=== PATIENT | female | born 1965 | race Caucasian/White ===

== ENCOUNTER 2020-01-23 15:57 | Outpatient (REF) | payer BC, SELFPAY ==
[2020-01-23 16:21] LABS: MANUAL DIFF FLAG NO
[2020-01-23 16:26] LABS: Basophils Absolute Auto 0.1 X10*3/uL (0.0-0.2); Basophils Percent Auto 0.6 % (0-2); Eosinophils Absolute Auto 0.1 X10*3/uL (0.0-0.4); Eosinophils Percent Auto 1.1 % (0-4); Hematocrit 46.2 % (37-47); Hemoglobin 14.3 g/dl (12.0-16.0); Imm Gran Abs Auto 0.03 X10*3/uL (0.00-0.03); Imm Gran Pct Auto 0.3 % (0.0-0.4); Lymphocytes Absolute Auto 2.5 X10*3/uL (1.2-4.9); Lymphocytes Percent Auto 26.3 % (20-40); Mean Corpuscular Hemoglobin 26.1 pg (27.0-33.0); Mean Corpuscular Volume 84.5 fL (80-98); Mean Platelet Volume 10.7 fL (9.4-12.3); Monocytes Absolute Auto 0.8 X10*3/uL (0.1-1.2); Neutrophils Absolute Auto 6.1 X10*3/uL (2.0-8.3); Neutrophils Percent Auto 63.7 % (45-73); Platelet Count 326 X10*3/uL (160-400); Red Blood Count 5.47 X10*6/uL (4.20-5.50); Red Cell Distribution Width 14.8 % (11.0-16.0); White Blood Count 9.6 X10*3/uL (4.8-10.8)
[2020-01-23 16:49] LABS: Alanine Aminotransferase 30 U/L (0-31); Albumin Level 4.3 g/dL (3.5-5.0); Alkaline Phosphatase 91 U/L (39-117); Anion Gap 12 (12-20); Aspartate Amino Transferase 18 U/L (5-31); Bilirubin Total 0.3 mg/dL (0.0-1.0); Blood Urea Nitrogen 13 mg/dL (9-16); Calcium 9.5 mg/dL (8.4-10.2); Carbon Dioxide 28 mmol/L (22-29); Chloride 104 mmol/L (96-108); Estimated Glomerular Filt Rate > 60; Glucose Random 101 mg/dL (60-115); Potassium 4.3 mmol/l (3.3-5.1); Sodium 140 mmol/L (135-145); Total Protein 7.5 g/dL (6.5-8.0)
[2020-01-23 17:16] LABS: Erythrocyte Sedimentation Rate 6 MM/HR (0-20)
== END 2020-01-23 15:58 | disposition home or self-care (01) ==
LOC: HO.LAB 15:57
PROVIDERS: PCP Internal Medicine; Visit Provider Student in an Organized Health Care Education/Training Program
DX: L40.50 Arthropathic psoriasis, unspecified (principal); L40.9 Psoriasis, unspecified
CPT/HCPCS: 36415; 80053; 85025; 85652; 86140

== ENCOUNTER 2020-11-06 13:24 | Outpatient (REF) | payer OTHER, SELFPAY ==
[2020-11-06 14:49] LABS: MANUAL DIFF FLAG NO
[2020-11-06 14:51] LABS: Basophils Absolute Auto 0.1 X10*3/uL (0.0-0.2); Basophils Percent Auto 0.7 % (0-2); Eosinophils Absolute Auto 0.1 X10*3/uL (0.0-0.4); Eosinophils Percent Auto 1.3 % (0-4); Hematocrit 43.7 % (37-47); Hemoglobin 13.7 g/dl (12.0-16.0); Imm Gran Abs Auto 0.02 X10*3/uL (0.00-0.03); Imm Gran Pct Auto 0.2 % (0.0-0.4); Lymphocytes Absolute Auto 2.2 X10*3/uL (1.2-4.9); Lymphocytes Percent Auto 25.1 % (20-40); Mean Corpuscular HGB Conc 31.4 g/dl (31.0-35.0); Mean Corpuscular Volume 83.1 fL (80-98); Mean Platelet Volume 10.8 fL (9.4-12.3); Monocytes Absolute Auto 0.8 X10*3/uL (0.1-1.2); Monocytes Percent Auto 8.9 % (2-11); Neutrophils Absolute Auto 5.6 X10*3/uL (2.0-8.3); Neutrophils Percent Auto 63.8 % (45-73); Platelet Count 324 X10*3/uL (160-400); Red Blood Count 5.26 X10*6/uL (4.20-5.50); White Blood Count 8.8 X10*3/uL (4.8-10.8)
[2020-11-06 15:34] LABS: Erythrocyte Sedimentation Rate 8 MM/HR (0-20)
[2020-11-06 15:55] LABS: Alanine Aminotransferase 23 U/L (0-31); Albumin Level 4.2 g/dL (3.5-5.0); Alkaline Phosphatase 84 U/L (39-117); Anion Gap 13 (12-20); Aspartate Amino Transferase 14 U/L (5-31); Bilirubin Total 0.4 mg/dL (0.0-1.0); Blood Urea Nitrogen 16 mg/dL (9-16); C Reactive Protein 1.01 mg/dL (< or = 0.50); Calcium 9.6 mg/dL (8.4-10.2); Carbon Dioxide 26 mmol/L (22-29); Chloride 106 mmol/L (96-108); Estimated Glomerular Filt Rate 49; Glucose Random 82 mg/dL (60-115); Potassium 4.6 mmol/L (3.3-5.1); Sodium 140 mmol/L (135-145); Total Protein 7.2 g/dL (6.5-8.0)
== END 2020-11-06 13:25 | disposition home or self-care (01) ==
LOC: HO.LAB 13:24
PROVIDERS: PCP Internal Medicine; Visit Provider Nurse Practitioner Family
DX: L40.50 Arthropathic psoriasis, unspecified (principal); F17.210 Nicotine dependence, cigarettes, uncomplicated; Z79.899 Other long term (current) drug therapy
CPT/HCPCS: 36415; 80053; 85025; 85652; 86140

== ENCOUNTER 2020-12-26 12:48 | Outpatient (REF) | payer OTHER, SELFPAY ==
[2020-12-27 09:34] LABS: HBS Num1 108.43 mIU/mL (0-7.99); HBc Num1 9.37 S/CO (0.00-0.79); HBsAGNum1 0.15 S/CO (0.00-0.99); ~Hepatitis B Surface Antibody REACTIVE (Nonreactive); ~Hepatitis C Antibody Nonreactive (Nonreactive)
[2020-12-27 09:35] LABS: Hepatitis B Surface Antigen Negative (Negative)
[2020-12-27 11:49] LABS: HBc Num2 8.94 S/CO
[2020-12-27 11:50] LABS: HBc Num3 9.48 S/CO; Hepatitis B Core Antibody Reactive (Nonreactive)
[2020-12-28 06:50] LABS: Hepatitis A Antibody IgM 0.13 Index (0-0.79); ~Hepatitis A Antibody IgM Nonreactive (Nonreactive)
[2020-12-28 18:22] LABS: TS Negative Control Passed; TS Panel A 0; TS Panel B 0; TS Positive Control Passed; TSpotTB Negative (Negative)
== END 2020-12-26 12:49 | disposition home or self-care (01) ==
LOC: HO.LAB 12:48
PROVIDERS: PCP Internal Medicine; Visit Provider Nurse Practitioner Family
DX: L40.50 Arthropathic psoriasis, unspecified (principal)
CPT/HCPCS: 36415; 86481; 86704; 86706; 86709; 86803; 87340

== ENCOUNTER 2021-01-07 14:50 | Outpatient (REF) | payer OTHER, SELFPAY ==
[2021-01-07 16:18] LABS: MANUAL DIFF FLAG NO
[2021-01-07 16:21] LABS: Basophils Absolute Auto 0.1 X10*3/uL (0.0-0.2); Basophils Percent Auto 0.7 % (0-2); Eosinophils Absolute Auto 0.1 X10*3/uL (0.0-0.4); Eosinophils Percent Auto 0.9 % (0-4); Hematocrit 43.2 % (37.0-47.0); Hemoglobin 13.6 g/dl (12.0-16.0); Imm Gran Abs Auto 0.03 X10*3/uL (0.00-0.03); Imm Gran Pct Auto 0.3 % (0.0-0.4); Lymphocytes Absolute Auto 2.1 X10*3/uL (1.2-4.9); Lymphocytes Percent Auto 21.1 % (20-40); Mean Corpuscular HGB Conc 31.5 g/dl (31.0-35.0); Mean Corpuscular Hemoglobin 26.3 pg (27.0-33.0); Mean Corpuscular Volume 83.6 fL (80.0-98.0); Mean Platelet Volume 10.1 fL (9.4-12.3); Monocytes Absolute Auto 0.7 X10*3/uL (0.1-1.2); Monocytes Percent Auto 7.1 % (2-11); Neutrophils Percent Auto 69.9 % (45-73); Platelet Count 315 X10*3/uL (160-400); Red Blood Count 5.17 X10*6/uL (4.20-5.50); Red Cell Distribution Width 15.5 % (11.0-16.0)
[2021-01-07 16:28] LABS: INTERNATIONAL NORM RATIO 1.1 (0.9-1.1); Prothrombin Time 12.4 SEC (9.9-13.0)
[2021-01-07 16:45] LABS: Alanine Aminotransferase 27 U/L (0-31); Albumin Level 4.1 g/dL (3.5-5.0); Alkaline Phosphatase 87 U/L (39-117); Anion Gap 11 (12-20); Aspartate Amino Transferase 16 U/L (5-31); Bilirubin Direct 0.2 mg/dL (0.0-0.5); Bilirubin Total 0.3 mg/dL (0.0-1.0); Blood Urea Nitrogen 16 mg/dL (9-16); Calcium 9.6 mg/dL (8.4-10.2); Carbon Dioxide 27 mmol/L (22-29); Chloride 107 mmol/L (96-108); Estimated Glomerular Filt Rate > 60; Glucose Random 94 mg/dL (60-115); Potassium 4.2 mmol/L (3.3-5.1); Sodium 141 mmol/L (135-145); Total Protein 7.2 g/dL (6.5-8.0)
[2021-01-09 08:37] LABS: HBc Num1 9.55 S/CO (0.00-0.79)
[2021-01-09 09:57] LABS: HBc Num2 9.03 S/CO; HBc Num3 9.05 S/CO; Hepatitis B Core Antibody Reactive (Nonreactive)
[2021-01-10 10:46] LABS: Hepatitis B Core Antibody IgM NON-REACTIVE (NON-REACTIVE)
[2021-01-10 14:21] LABS: Hepatitis B Viral DNA Qn - cp <1.00 NOT DETECTED Log IU/mL (NOT DETECTED); Hepatitis B Viral DNA Qn-IU/mL <10 NOT DETECTED IU/mL (NOT DETECTED)
[2021-01-11 11:16] LABS: Hepatitis BE Antigen NON-REACTIVE (NON-REACTIVE)
[2021-01-11 14:50] LABS: FIB-ALT 24 U/L (6-29); FIB-Alpha-2-Macroglobulin 119 mg/dL (106-279); FIB-Apolipoprotein A1 153 mg/dL (101-198); FIB-GGT 58 U/L (3-70); FIB-Haptoglobin 56 mg/dL (43-212); FIB-Total Bilirubin 0.3 mg/dL (0.2-1.2); Liver Fibrosis Score 0.11; Liver Fibrosis Stage F0; Nec Inflam Act Grade A0; Nec Inflam Act Score 0.08
[2021-01-14 13:37] LABS: Hepatitis BE Antibody NON-REACTIVE (NON-REACTIVE)
== END 2021-01-07 14:51 | disposition home or self-care (01) ==
LOC: HO.LAB 14:50
PROVIDERS: PCP Internal Medicine; Visit Provider Internal Medicine
DX: B19.10 Unspecified viral hepatitis B without hepatic coma (principal)
CPT/HCPCS: 36415; 80048; 80076; 81596; 85025; 85610; 86704; 86705; 86707; 87350; 87517

== ENCOUNTER → 2021-01-16 16:11 | Outpatient (BNVA) | payer OTHER, SELFPAY | PROVIDERS: Visit Provider Internal Medicine ==

== ENCOUNTER → 2021-02-12 08:00 | Outpatient (BNVA) | payer OTHER, SELFPAY | PROVIDERS: PCP Internal Medicine; Visit Provider Nurse Practitioner Family ==

== ENCOUNTER → 2021-02-25 14:16 | Outpatient (BNVA) | payer OTHER, SELFPAY | PROVIDERS: PCP Internal Medicine; Visit Provider Internal Medicine ==

== ENCOUNTER 2021-04-19 15:57 | Outpatient (REF) | payer OTHER, SELFPAY ==
[2021-04-19 16:28] LABS: MANUAL DIFF FLAG NO
[2021-04-19 16:31] LABS: Basophils Absolute Auto 0.1 X10*3/uL (0.0-0.2); Basophils Percent Auto 0.5 % (0-2); Eosinophils Absolute Auto 0.3 X10*3/uL (0.0-0.4); Eosinophils Percent Auto 2.6 % (0-4); Hematocrit 43.6 % (37.0-47.0); Hemoglobin 13.8 g/dl (12.0-16.0); Imm Gran Abs Auto 0.02 X10*3/uL (0.00-0.03); Imm Gran Pct Auto 0.2 % (0.0-0.4); Lymphocytes Absolute Auto 2.5 X10*3/uL (1.2-4.9); Lymphocytes Percent Auto 26.6 % (20-40); Mean Corpuscular HGB Conc 31.7 g/dl (31.0-35.0); Mean Corpuscular Hemoglobin 26.2 pg (27.0-33.0); Mean Corpuscular Volume 82.7 fL (80.0-98.0); Mean Platelet Volume 10.8 fL (9.4-12.3); Monocytes Absolute Auto 0.6 X10*3/uL (0.1-1.2); Monocytes Percent Auto 6.8 % (2-11); Neutrophils Percent Auto 63.3 % (45-73); Platelet Count 335 X10*3/uL (160-400); Red Blood Count 5.27 X10*6/uL (4.20-5.50); Red Cell Distribution Width 14.7 % (11.0-16.0); White Blood Count 9.5 X10*3/uL (4.8-10.8)
[2021-04-19 16:52] LABS: Alanine Aminotransferase 24 U/L (0-31); Albumin Level 4.2 g/dL (3.5-5.0); Alkaline Phosphatase 88 U/L (39-117); Anion Gap 9 (12-20); Aspartate Amino Transferase 15 U/L (5-31); Bilirubin Total 0.4 mg/dL (0.0-1.0); Blood Urea Nitrogen 13 mg/dL (9-16); C Reactive Protein 0.64 mg/dL (< or = 0.50); Calcium 9.6 mg/dL (8.4-10.2); Carbon Dioxide 29 mmol/L (22-29); Chloride 106 mmol/L (96-108); Estimated Glomerular Filt Rate 57; Glucose Random 98 mg/dL (60-115); Iron 73 mcg/dL (30-160); Percent Iron Saturation 15 % (15-50); Potassium 4.4 mmol/L (3.3-5.1); Sodium 140 mmol/L (135-145); Total Iron Binding Capacity 489 mcg/dL (228-428); Total Protein 7.3 g/dL (6.5-8.0); Unsaturated Iron Binding 416 ug/dL
[2021-04-19 17:08] LABS: Ferritin 110 ng/mL (10-250)
[2021-04-19 17:14] LABS: Erythrocyte Sedimentation Rate 9 MM/HR (0-20)
== END 2021-04-19 15:58 | disposition home or self-care (01) ==
LOC: HO.LAB 15:57
PROVIDERS: PCP Internal Medicine; Visit Provider Nurse Practitioner Family
DX: L40.50 Arthropathic psoriasis, unspecified (principal)
CPT/HCPCS: 36415; 80053; 82728; 83540; 85025; 85652; 86140

== ENCOUNTER → 2021-04-25 08:41 | Outpatient (BNVA) | payer OTHER, SELFPAY | PROVIDERS: PCP Internal Medicine; Visit Provider Nurse Practitioner Family ==

== ENCOUNTER 2021-06-24 15:58 | Outpatient (REF) | payer OTHER, SELFPAY ==
[2021-06-24 16:15] LABS: MANUAL DIFF FLAG NO
[2021-06-24 16:25] LABS: Basophils Absolute Auto 0.1 X10*3/uL (0.0-0.2); Basophils Percent Auto 1.3 % (0-2); Eosinophils Absolute Auto 0.1 X10*3/uL (0.0-0.4); Eosinophils Percent Auto 1.3 % (0-4); Hematocrit 44.8 % (37.0-47.0); Hemoglobin 13.9 g/dl (12.0-16.0); Imm Gran Abs Auto 0.01 X10*3/uL (0.00-0.03); Imm Gran Pct Auto 0.3 % (0.0-0.4); Lymphocytes Absolute Auto 1.3 X10*3/uL (1.2-4.9); Lymphocytes Percent Auto 33.3 % (20-40); Mean Corpuscular Hemoglobin 25.9 pg (27.0-33.0); Mean Corpuscular Volume 83.4 fL (80.0-98.0); Mean Platelet Volume 10.8 fL (9.4-12.3); Monocytes Absolute Auto 0.7 X10*3/uL (0.1-1.2); Monocytes Percent Auto 18.4 % (2-11); Neutrophils Absolute Auto 1.8 x10*3/uL (2.0-8.3); Neutrophils Percent Auto 45.4 % (45-73); Platelet Count 285 X10*3/uL (160-400); Red Blood Count 5.37 X10*6/uL (4.20-5.50); Red Cell Distribution Width 14.9 % (11.0-16.0)
[2021-06-24 16:59] LABS: Alanine Aminotransferase 31 U/L (0-31); Alkaline Phosphatase 80 U/L (39-117); Anion Gap 10 (12-20); Aspartate Amino Transferase 20 U/L (5-31); Bilirubin Total 0.3 mg/dL (0.0-1.0); Blood Urea Nitrogen 12 mg/dL (9-16); C Reactive Protein 0.86 mg/dL (< or = 0.50); Calcium 9.1 mg/dL (8.4-10.2); Carbon Dioxide 27 mmol/L (22-29); Chloride 109 mmol/L (96-108); Estimated Glomerular Filt Rate > 60; Glucose Random 98 mg/dL (60-115); Sodium 142 mmol/L (135-145)
[2021-06-24 17:19] LABS: Thyroid Stimulating Hormone 1.54 uIU/mL (0.32-4.0); Vitamin D 25-OH Total 30.7 ng/mL (>30)
[2021-06-24 17:44] LABS: Erythrocyte Sedimentation Rate 13 MM/HR (0-20)
== END 2021-06-24 15:59 | disposition home or self-care (01) ==
LOC: HO.LAB 15:58
PROVIDERS: PCP Internal Medicine; Visit Provider Nurse Practitioner Family
DX: L40.50 Arthropathic psoriasis, unspecified (principal)
CPT/HCPCS: 36415; 80053; 82306; 84443; 85025; 85652; 86140

== ENCOUNTER 2021-07-23 16:22 | Outpatient (REF) | payer OTHER, SELFPAY ==
[2021-07-23 16:37] LABS: MANUAL DIFF FLAG NO
[2021-07-23 17:45] LABS: Basophils Absolute Auto 0.1 X10*3/uL (0.0-0.2); Basophils Percent Auto 0.6 % (0-2); Eosinophils Absolute Auto 0.3 X10*3/uL (0.0-0.4); Hematocrit 42.3 % (37.0-47.0); Hemoglobin 13.1 g/dl (12.0-16.0); Imm Gran Abs Auto 0.03 X10*3/uL (0.00-0.03); Imm Gran Pct Auto 0.3 % (0.0-0.4); Lymphocytes Absolute Auto 2.6 X10*3/uL (1.2-4.9); Lymphocytes Percent Auto 27.2 % (20-40); Mean Corpuscular Hemoglobin 25.8 pg (27.0-33.0); Mean Corpuscular Volume 83.3 fL (80.0-98.0); Mean Platelet Volume 10.9 fL (9.4-12.3); Monocytes Absolute Auto 0.8 X10*3/uL (0.1-1.2); Monocytes Percent Auto 7.8 % (2-11); Neutrophils Absolute Auto 5.9 x10*3/uL (2.0-8.3); Neutrophils Percent Auto 61.1 % (45-73); Platelet Count 319 X10*3/uL (160-400); Red Blood Count 5.08 X10*6/uL (4.20-5.50); Red Cell Distribution Width 14.9 % (11.0-16.0); White Blood Count 9.7 X10*3/uL (4.8-10.8)
[2021-07-23 18:06] LABS: Alanine Aminotransferase 27 U/L (0-31); Albumin Level 4.1 g/dL (3.5-5.0); Alkaline Phosphatase 88 U/L (39-117); Anion Gap 14 (12-20); Aspartate Amino Transferase 15 U/L (5-31); Bilirubin Total 0.3 mg/dL (0.0-1.0); Blood Urea Nitrogen 20 mg/dL (9-16); C Reactive Protein 0.84 mg/dL (< or = 0.50); Calcium 9.5 mg/dL (8.4-10.2); Carbon Dioxide 24 mmol/L (22-29); Chloride 107 mmol/L (96-108); Estimated Glomerular Filt Rate > 60; Glucose Random 85 mg/dL (60-115); Potassium 4.7 mmol/L (3.3-5.1); Sodium 140 mmol/L (135-145); Total Protein 7.2 g/dL (6.5-8.0)
[2021-07-23 18:22] LABS: Erythrocyte Sedimentation Rate 9 MM/HR (0-20)
== END 2021-07-23 16:23 | disposition home or self-care (01) ==
LOC: HO.LAB 16:22
PROVIDERS: PCP Internal Medicine; Visit Provider Nurse Practitioner Family
DX: L40.50 Arthropathic psoriasis, unspecified (principal)
CPT/HCPCS: 36415; 80053; 85025; 85652; 86140

== ENCOUNTER 2021-08-02 14:25 | Outpatient (REF) | payer OTHER, SELFPAY ==
[2021-08-02 15:49] LABS: Alanine Aminotransferase 32 U/L (0-31); Albumin Level 4.1 g/dL (3.5-5.0); Alkaline Phosphatase 94 U/L (39-117); Aspartate Amino Transferase 18 U/L (5-31); Bilirubin Direct 0.2 mg/dL (0.0-0.5); Bilirubin Total 0.4 mg/dL (0.0-1.0); Total Protein 7.4 g/dL (6.5-8.0)
[2021-08-04 14:36] LABS: Hepatitis B Viral DNA Qn - cp <1.00 NOT DETECTED Log IU/mL (NOT DETECTED); Hepatitis B Viral DNA Qn-IU/mL <10 NOT DETECTED IU/mL (NOT DETECTED)
== END 2021-08-02 14:26 | disposition home or self-care (01) ==
LOC: HO.LAB 14:25
PROVIDERS: Absent Provider Internal Medicine; PCP Internal Medicine; Visit Provider Nurse Practitioner Family
DX: B19.10 Unspecified viral hepatitis B without hepatic coma (principal); L40.50 Arthropathic psoriasis, unspecified
CPT/HCPCS: 36415; 80076; 87517

== ENCOUNTER 2021-10-04 07:48 | Outpatient (REF) | payer OTHER, SELFPAY ==
--- NOTE | ~2021-10-04 | US_ITS ---
EXAMINATION: US ABDOMEN COMPLETE CLINICAL INFORMATION: Unspecified viral hepatitis B without hepatic coma. COMPARISON: None TECHNIQUE: Real-time imaging of the abdominal viscera. FINDINGS: PANCREAS: Not well visualized due to bowel gas ABDOMINAL AORTA: The proximal, mid, and distal segments are normal in caliber. INFERIOR VENA CAVA: Visualized portions are normal. LIVER: The liver is normal in size. The liver contour is normal. Liver echotexture is slightly increased. No focal hepatic lesion. There is no intrahepatic biliary duct dilatation seen. GALLBLADDER: The gallbladder is physiologically distended. Multiple mobile gallstones are present. No evidence of gallbladder wall thickening or pericholecystic fluid. COMMON BILE DUCT: Normal in caliber measuring 0.3 cm in diameter. RIGHT KIDNEY: Normal. No hydronephrosis. No renal calculi or focal parenchymal lesions. The kidney measures 12.8 cm in maximum dimension. LEFT KIDNEY: Normal. No hydronephrosis. No renal calculi or focal parenchymal lesions. The kidney measures 12.0 cm in maximum dimension. SPLEEN: Normal. The spleen measures 10.0 cm in maximum dimension. FREE FLUID: None. US/US abdomen complete IMPRESSION: Slightly echogenic liver. Gallstones. Limited visualization of the pancreas.
== END 2021-10-04 07:49 | disposition home or self-care (01) ==
LOC: HO.US 07:48
PROVIDERS: Visit Provider Internal Medicine
DX: B19.10 Unspecified viral hepatitis B without hepatic coma (principal)
CPT/HCPCS: 76700

== ENCOUNTER 2021-10-21 16:23 | Outpatient (REF) | payer OTHER, SELFPAY ==
[2021-10-21 16:37] LABS: MANUAL DIFF FLAG NO
[2021-10-21 16:49] LABS: Basophils Absolute Auto 0.1 X10*3/uL (0.0-0.2); Basophils Percent Auto 0.5 % (0-2); Eosinophils Absolute Auto 0.1 X10*3/uL (0.0-0.4); Eosinophils Percent Auto 1.2 % (0-4); Hematocrit 44.2 % (37.0-47.0); Hemoglobin 13.8 g/dl (12.0-16.0); Imm Gran Abs Auto 0.03 X10*3/uL (0.00-0.03); Imm Gran Pct Auto 0.3 % (0.0-0.4); Lymphocytes Absolute Auto 2.3 X10*3/uL (1.2-4.9); Lymphocytes Percent Auto 22.2 % (20-40); Mean Corpuscular HGB Conc 31.2 g/dl (31.0-35.0); Mean Corpuscular Hemoglobin 25.8 pg (27.0-33.0); Mean Corpuscular Volume 82.8 fL (80.0-98.0); Mean Platelet Volume 10.6 fL (9.4-12.3); Monocytes Absolute Auto 0.9 X10*3/uL (0.1-1.2); Neutrophils Absolute Auto 6.9 x10*3/uL (2.0-8.3); Neutrophils Percent Auto 66.8 % (45-73); Platelet Count 317 X10*3/uL (160-400); Red Blood Count 5.34 X10*6/uL (4.20-5.50); Red Cell Distribution Width 14.8 % (11.0-16.0); White Blood Count 10.3 X10*3/uL (4.8-10.8)
[2021-10-21 17:16] LABS: Alanine Aminotransferase 22 U/L (0-31); Aspartate Amino Transferase 14 U/L (5-31); C Reactive Protein 1.03 mg/dL (< or = 0.50); Estimated Glomerular Filt Rate > 60
[2021-10-21 19:04] LABS: Erythrocyte Sedimentation Rate 12 MM/HR (0-20)
== END 2021-10-21 16:24 | disposition home or self-care (01) ==
LOC: HO.LAB 16:23
PROVIDERS: PCP Internal Medicine; Visit Provider Nurse Practitioner Family
DX: L40.50 Arthropathic psoriasis, unspecified (principal); Z79.899 Other long term (current) drug therapy
CPT/HCPCS: 36415; 82565; 84450; 84460; 85025; 85652; 86140

== ENCOUNTER 2021-12-24 12:35 | Outpatient (REF) | payer OTHER, SELFPAY ==
[2021-12-24 13:40] LABS: MANUAL DIFF FLAG NO
[2021-12-24 13:51] LABS: Basophils Absolute Auto 0.1 X10*3/uL (0.0-0.2); Basophils Percent Auto 0.6 % (0-2); Eosinophils Absolute Auto 0.1 X10*3/uL (0.0-0.4); Eosinophils Percent Auto 1.4 % (0-4); Hematocrit 43.5 % (37.0-47.0); Hemoglobin 13.8 g/dl (12.0-16.0); Imm Gran Abs Auto 0.03 X10*3/uL (0.00-0.03); Imm Gran Pct Auto 0.3 % (0.0-0.4); Lymphocytes Absolute Auto 2.3 X10*3/uL (1.2-4.9); Lymphocytes Percent Auto 25.7 % (20-40); Mean Corpuscular HGB Conc 31.7 g/dl (31.0-35.0); Mean Corpuscular Hemoglobin 26.4 pg (27.0-33.0); Mean Corpuscular Volume 83.2 fL (80.0-98.0); Mean Platelet Volume 11.4 fL (9.4-12.3); Monocytes Absolute Auto 0.7 X10*3/uL (0.1-1.2); Neutrophils Absolute Auto 5.8 x10*3/uL (2.0-8.3); Platelet Count 358 X10*3/uL (160-400); Red Blood Count 5.23 X10*6/uL (4.20-5.50); Red Cell Distribution Width 15.5 % (11.0-16.0)
[2021-12-24 14:32] LABS: Alanine Aminotransferase 23 U/L (0-31); Aspartate Amino Transferase 15 U/L (5-31); Estimated Glomerular Filt Rate > 60
[2021-12-24 14:45] LABS: Erythrocyte Sedimentation Rate 13 MM/HR (0-20)
== END 2021-12-24 12:36 | disposition home or self-care (01) ==
LOC: HO.10HDL 12:35
PROVIDERS: Visit Provider Nurse Practitioner Family
DX: L40.50 Arthropathic psoriasis, unspecified (principal); Z79.899 Other long term (current) drug therapy
CPT/HCPCS: 36415; 82565; 84450; 84460; 85025; 85652; 86140

== ENCOUNTER 2022-03-31 15:54 | Outpatient (REF) | payer OTHER, SELFPAY ==
--- NOTE | ~2022-03-31 | XR_ITS ---
EXAMINATION: XR LUMBOSACRAL SPINE CLINICAL INFORMATION: Low back pain COMPARISON: None TECHNIQUE: Three views of the lumbosacral spine. FINDINGS: There is normal lumbar lordosis. The vertebral heights, alignment are normal. There is loss of L5-S1 disc height with mild ventral spondylosis. The rest of the disc heights are normal. The SI joints are symmetrical and normal. XR/XR lumbar spine 2-3V IMPRESSION: Degenerative disc changes L5-S1 disc level with mild ventral spondylosis. No visible acute fracture or dislocation seen.
--- NOTE | ~2022-03-31 | XR_ITS ---
EXAMINATION: XR hand LT min 3V, XR hand RT min 3V CLINICAL INFORMATION: Psoriatic arthritis. COMPARISON: None TECHNIQUE: 3 views of the bilateral hands FINDINGS: RIGHT HAND: No fracture or dislocation. Joint spaces are maintained. No cortical erosion. Soft tissues are unremarkable. LEFT HAND: No fracture or dislocation. Joint spaces are maintained. No cortical erosion. Soft tissues are unremarkable. XR/XR hand LT min 3V IMPRESSION: No acute osseous abnormality or cortical erosions to favor erosive arthropathy.
--- NOTE | ~2022-03-31 | XR_ITS ---
EXAMINATION: XR hand LT min 3V, XR hand RT min 3V CLINICAL INFORMATION: Psoriatic arthritis. COMPARISON: None TECHNIQUE: 3 views of the bilateral hands FINDINGS: RIGHT HAND: No fracture or dislocation. Joint spaces are maintained. No cortical erosion. Soft tissues are unremarkable. LEFT HAND: No fracture or dislocation. Joint spaces are maintained. No cortical erosion. Soft tissues are unremarkable. XR/XR hand RT min 3V IMPRESSION: No acute osseous abnormality or cortical erosions to favor erosive arthropathy.
[2022-03-31 16:40] LABS: MANUAL DIFF FLAG NO
[2022-03-31 16:49] LABS: Basophils Absolute Auto 0.1 X10*3/uL (0.0-0.2); Basophils Percent Auto 0.7 % (0-2); Eosinophils Absolute Auto 0.2 X10*3/uL (0.0-0.4); Eosinophils Percent Auto 1.4 % (0-4); Hematocrit 45.1 % (37.0-47.0); Hemoglobin 14.2 g/dl (12.0-16.0); Imm Gran Abs Auto 0.05 X10*3/uL (0.00-0.03); Imm Gran Pct Auto 0.4 % (0.0-0.4); Lymphocytes Absolute Auto 2.6 X10*3/uL (1.2-4.9); Lymphocytes Percent Auto 22.5 % (20-40); Mean Corpuscular HGB Conc 31.5 g/dl (31.0-35.0); Mean Corpuscular Hemoglobin 25.9 pg (27.0-33.0); Mean Corpuscular Volume 82.3 fL (80.0-98.0); Mean Platelet Volume 10.7 fL (9.4-12.3); Monocytes Absolute Auto 0.8 X10*3/uL (0.1-1.2); Neutrophils Absolute Auto 7.7 x10*3/uL (2.0-8.3); Platelet Count 340 X10*3/uL (160-400); Red Blood Count 5.48 X10*6/uL (4.20-5.50); Red Cell Distribution Width 14.7 % (11.0-16.0); White Blood Count 11.3 X10*3/uL (4.8-10.8)
[2022-03-31 17:15] LABS: Alanine Aminotransferase 26 U/L (0-31); Albumin Level 4.2 g/dL (3.5-5.0); Alkaline Phosphatase 92 U/L (39-117); Aspartate Amino Transferase 15 U/L (5-31); Bilirubin Direct < 0.2 mg/dL (0.0-0.5); Bilirubin Total 0.3 mg/dL (0.0-1.0); C Reactive Protein 0.78 mg/dL (< or = 0.50); Estimated Glomerular Filt Rate 58; Total Protein 7.3 g/dL (6.5-8.0)
[2022-03-31 17:25] LABS: Erythrocyte Sedimentation Rate 12 MM/HR (0-20)
[2022-03-31 18:24] LABS: Amphetamine Screen Urine Not Detected (Not Detect); Barbiturates, Urine Not Detected (Not Detect); Benzodiazepines Screen Urine Not Detected (Not Detect); Cannabinoid Screen Urine Not Detected (Not Detect); Cocaine Screen Urine Not Detected (Not Detect); Fentanyl, urine Not Detected (Not Detect); Opiate Screen Urine Not Detected (Not Detect); Phencyclidine Screen Urine Not Detected (Not Detect)
[2022-04-03 15:38] LABS: Hepatitis B Viral DNA Qn - cp <1.00 NOT DETECTED Log IU/mL (NOT DETECTED); Hepatitis B Viral DNA Qn-IU/mL <10 NOT DETECTED IU/mL (NOT DETECTED)
[2022-04-10 08:06] LABS: Tramadol, Ur >10000
[2022-04-10 08:07] LABS: Desmethyltramadol, Ur 1138
== END 2022-03-31 15:55 | disposition home or self-care (01) ==
LOC: HO.LAB 15:54
PROVIDERS: Absent Provider Internal Medicine; PCP Internal Medicine; Visit Provider Nurse Practitioner Family
DX: L40.50 Arthropathic psoriasis, unspecified (principal); M54.50 Low back pain, unspecified; B19.10 Unspecified viral hepatitis B without hepatic coma; Z79.899 Other long term (current) drug therapy
CPT/HCPCS: 36415; 72100; 73130; 80076; 80307; 80373; 82565; 85025; 85652; 86140; 87517

== ENCOUNTER → 2022-05-20 16:03 | Outpatient (BNVA) | payer OTHER, SELFPAY | PROVIDERS: PCP Internal Medicine; Visit Provider Nurse Practitioner Family | DX: Z13.89 Encounter for screening for other disorder (principal) ==

== ENCOUNTER → 2022-07-07 15:26 | Outpatient (BNVA) | payer OTHER, SELFPAY | PROVIDERS: PCP Internal Medicine; Visit Provider Internal Medicine ==

== ENCOUNTER 2022-11-20 08:01 | Outpatient (AMB) | payer OTHER, SELFPAY ==
--- NOTE | 2022-11-20 08:03 | A.OFFVIS_ITS ---
Intake Vital Signs 11/20/22 08:09 Height 5 ft 8 in Weight 262 lb 5.601 oz BMI 39.9 BP 122/86 Blood Pressure Location Lt brachial Position Sitting Pulse 72 Pulse Source Pulse Oximeter Temp 97.5 F Temp Source Skin Pulse Oximetry (%) 97 Oxygen Delivery Method Room Air Intake Visit Reasons: psa Intake Note: Patient here to follow up on PsA. Attorney General Required: No Accompanied by: Self / Same As Patient Allergies penicillin V Allergy (Intermediate, Verified 11/20/22 08:11) rash HPI HPI Comments History of Present Illness Details The patient returns for evaluation of her psoriasis and psoriatic arthritis. She was last seen by Susanna in April. Sandy says the joints are doing well with 100 mg Tremfya injections given every 8 weeks. She still has a patch of psoriasis behind the left ear but otherwise no other area of psoriasis. She had used some triamcinolone 0.1% cream on that in the past but she ran out of it. She gets some lower back pain towards the end of the interval between the Tremfya injections. Sometimes this is associated with doing extra heavy physical labor. She does take some tramadol for that pain on a controlled substance contract and seems to be responsible in its use. It has not caused her any sedation. 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 She is hepatitis B core antibody positive but surface antibody negative so she remains on tenofovir. She underwent a laparoscopic cholecystectomy earlier this year with no complications. [facility] Medical History (Updated 11/20/22 @ 08:46 by Constantine Medrano MD) Hepatitis B Surgical History (Updated 11/20/22 @ 08:11 by SARAI Swift) Hx laparoscopic cholecystectomy Social History (Updated 11/20/22 @ 08:12 by SARAI Swift) Household Members: Children Housing: House Alcohol intake: current Alcohol intake frequency: a few times a week Patient Tobacco Use Status: Current everyday Tobacco user Cigarettes Per Day: 5 Years Smoked: 35 Review of Systems Const Details: Fatigue is been a chronic problem for her. Mostly this is notable after physical activity. She does not have any daytime sleepiness. Negative for appetite change, weight change, fever, chills, malaise Eyes Details: Negative for vision change, dry eyes,headaches and dizziness Card Details: Negative chest pain, edema and syncope Resp Details: Negative for SOB, cough and wheezing GI Details: Negative indigestion/heartburn, nausea, abdominal pain, bowel changes, diarrhea, constipation and bloody stool. Endo Details: Negative for polyuria and polydypsia Mp/Lymph Details: Negative for excessive bruising or bleeding. Physical Exam Vital Signs: Last Vital Signs Temp 97.5 F 11/20/22 08:09 Pulse 72 11/20/22 08:09 BP 122/86 11/20/22 08:09 Pulse Ox 97 11/20/22 08:09 Oxygen Delivery Method Room Air 11/20/22 08:09 BMI result Body Mass Index 39.9 APPEARANCE: Patient in no acute distress EYES no redness, pupils equal and reactive to light, eyelids normal EARS: External ear normal, canal clear and tympanic membrane normal. NOSE/SINUS: Airflow through both nares, no nasal discharge, no bleeding EXTREMITIES: No edema, no calf tenderness, normal peripheral pulses. SKIN: There is a scaly patch of red skin behind the left ear. This looks typical for psoriasis. No other inflammatory or neoplastic lesions. JOINT EXAM: ?? Cervical Spine: Full range of motion without pain; no tenderness. Thoracic Spine:? No scoliosis.? No tenderness on palpation. Lumbar Spine: Alignment normal.? Full range of motion. Slight tenderness to palpation over the lumbar spine. Hands: Normal pain-free range of motion without tenderness, swelling, increased warmth or erythema. 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 No synovitis on exam. Wrists: Normal pain-free range of motion without tenderness, swelling, increased warmth or erythema. Elbows:Normal pain-free range of motion without tenderness, swelling, increased warmth or erythema. Shoulders:? Full range of motion without pain. No tenderness, weakness, swelling, increased warmth or erythema. Hips: Normal pain-free range of motion without pain. Hip bursa:? No trochanteric tenderness Knees:?? Normal pain-free range of motion. No crepitus, swelling, or tenderness. Ankles:? Normal pain-free range of motion. No tenderness.. Feet: no tenderness. ? Results Reviewed Results Reviewed: Laboratory Tests 03/31/22 16:38 Creatinine 0.98 AST 15 ALT 26 Alkaline Phosphatase 92 C-Reactive Protein 0.78 H Laboratory Tests 01/07/21 03/31/22 03/31/22 16:15 16:38 16:38 WBC 11.3 H Hgb 14.2 ESR 12 Hep B Core Total Ab Reactive Hep B DNA copies/mL <1.00 NOT DETECTED Assessment & Plan Assessment & Plan (1) Psoriasis: Code(s): L40.9 - Psoriasis, unspecified (2) Medication monitoring encounter: Comment: Tramadol pain contract updated 12/24/2021 Code(s): Z51.81 - Encounter for therapeutic drug level monitoring (3) Hepatitis B: Comment: She is still taking biologic,different one (Tremfya). She has no concerns and has undetectable viral load; positive hepatitis-B core antibody but negative surface antibody on tenofovir Code(s): B19.10 - Unspecified viral hepatitis B without hepatic coma (4) Fatigue: Code(s): R53.83 - Other fatigue (5) Psoriatic arthritis: Comment: Humira: May 2017- August 2018 Stelara: March 2018-March 2021-had breakthrough joint pain Cosentyx: March 2021- September 2021-ineffective Tremfya: September 2021- present Code(s): L40.50 - Arthropathic psoriasis, unspecified Plan Psoriatic arthritis with good control of synovitis with current treatment. There is still a resistant patch of psoriasis behind the left ear. This was helped previously with topical triamcinolone cream so we will add that back. She has been on a number of different regimens for her psoriatic disease and this is the best she has been so I am not anxious to try to switch to something else. SUZANNA inhibitors may be more effective but they would potentially increase her risk for heart disease and she is a smoker. She should remain on the tenofovir for now. She has had some chronic fatigue. It is unclear what this is due to. We will check iron and thyroid levels to work that up further. CBC and Chem panel as well as acute phase reactants are order to monitor her psoriatic disease and its treatment Orders: Orders C Reactive Protein Today L40.50 - Arthropathic psoriasis, unspecified, L40.9 - Psoriasis, unspecified IRON PROFILE Today R53.83 - Other fatigue Complete Blood Count Auto Diff Today L40.50 - Arthropathic psoriasis, unspecified, L40.9 - Psoriasis, unspecified Comprehensive Met. Panel Today L40.50 - Arthropathic psoriasis, unspecified, L40.9 - Psoriasis, unspecified Erythrocyte Sedimentation Rate Today L40.50 - Arthropathic psoriasis, unspecified, L40.9 - Psoriasis, unspecified Thyroid Stimulating Hormone Today R53.83 - Other fatigue Medications: New triamcinolone acetonide 0.1% 1 appl topical DAILY 30 grams 4RF L40.9 - Psoriasis, unspecified Coding Level of Care Code Est Pt Level 4 (72195) Diagnoses Psoriasis L40.9 Medication monitoring encounter Z51.81 Hepatitis B B19.10 Fatigue R53.83 Psoriatic arthritis L40.50
[2022-11-20 08:09] VITALS: BP 122/86; PULSE 72; TEMP 36.4; O2SAT 97; BMI 39.9
== END 2022-11-20 08:32 | disposition home or self-care (01) ==
PROVIDERS: PCP Internal Medicine; Visit Provider Internal Medicine Rheumatology
DX: L40.9 Psoriasis, unspecified (principal); Z51.81 Encounter for therapeutic drug level monitoring; B19.10 Unspecified viral hepatitis B without hepatic coma; R53.83 Other fatigue; L40.50 Arthropathic psoriasis, unspecified
CPT/HCPCS: 99214

== ENCOUNTER → 2022-11-20 08:01 | Outpatient (BNVA) | payer OTHER, SELFPAY | PROVIDERS: PCP Internal Medicine; Visit Provider Internal Medicine Rheumatology ==

== ENCOUNTER 2022-11-20 08:34 | Outpatient (REF) | payer OTHER, SELFPAY ==
[2022-11-20 10:43] LABS: MANUAL DIFF FLAG NO
[2022-11-20 10:50] LABS: Basophils Absolute Auto 0.1 X10*3/uL (0.0-0.2); Eosinophils Absolute Auto 0.2 X10*3/uL (0.0-0.4); Eosinophils Percent Auto 1.9 % (0-4); Hematocrit 45.7 % (37.0-47.0); Hemoglobin 14.4 g/dl (12.0-16.0); Imm Gran Abs Auto 0.02 X10*3/uL (0.00-0.03); Imm Gran Pct Auto 0.2 % (0.0-0.4); Lymphocytes Absolute Auto 2.2 X10*3/uL (1.2-4.9); Lymphocytes Percent Auto 26.3 % (20-40); Mean Corpuscular HGB Conc 31.5 g/dl (31.0-35.0); Mean Corpuscular Hemoglobin 26.2 pg (27.0-33.0); Mean Corpuscular Volume 83.2 fL (80.0-98.0); Monocytes Absolute Auto 0.7 X10*3/uL (0.1-1.2); Monocytes Percent Auto 7.8 % (2-11); Neutrophils Absolute Auto 5.3 x10*3/uL (2.0-8.3); Neutrophils Percent Auto 62.8 % (45-73); Platelet Count 325 X10*3/uL (160-400); Red Blood Count 5.49 X10*6/uL (4.20-5.50); Red Cell Distribution Width 15.3 % (11.0-16.0); White Blood Count 8.4 X10*3/uL (4.8-10.8)
[2022-11-20 11:18] LABS: Alanine Aminotransferase 28 U/L (0-31); Albumin Level 4.2 g/dL (3.5-5.0); Alkaline Phosphatase 90 U/L (39-117); Anion Gap 11 (12-20); Aspartate Amino Transferase 17 U/L (5-31); Bilirubin Total 0.6 mg/dL (0.0-1.0); Blood Urea Nitrogen 12 mg/dL (9-16); Calcium 9.9 mg/dL (8.4-10.2); Carbon Dioxide 26 mmol/L (22-29); Chloride 109 mmol/L (96-108); Estimated Glomerular Filt Rate > 60; Glucose Random 100 mg/dL (60-115); Iron 114 mcg/dL (30-160); Percent Iron Saturation 28 % (15-50); Sodium 142 mmol/L (135-145); Total Iron Binding Capacity 403 mcg/dL (228-428); Total Protein 7.5 g/dL (6.5-8.0); Unsaturated Iron Binding 289 ug/dL
[2022-11-20 11:29] LABS: Erythrocyte Sedimentation Rate 7 MM/HR (0-20)
== END 2022-11-20 08:35 | disposition home or self-care (01) ==
LOC: HO.10HDL 08:34
PROVIDERS: Visit Provider Internal Medicine Rheumatology
DX: L40.50 Arthropathic psoriasis, unspecified (principal); R53.83 Other fatigue
CPT/HCPCS: 36415; 80053; 83540; 84443; 85025; 85652; 86140

== ENCOUNTER 2023-05-19 08:29 | Outpatient (AMB) | payer OTHER, SELFPAY ==
--- NOTE | 2023-05-19 08:35 | MHC.OFFVIS ---
Intake Vital Signs 05/19/23 08:40 Height 5 ft 8 in Weight 274 lb 11.135 oz BMI 41.8 BP 116/80 Blood Pressure Location Rt brachial Position Sitting Pulse 81 Pulse Source Pulse Oximeter Temp 97.0 F Temp Source Skin Pulse Oximetry (%) 99 Oxygen Delivery Method Room Air Intake Visit Reasons: psa with [employer]/may 2023 Intake Note: Patient last seen 11/20/[address] Medrano, presents today for follow up. 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 Somers 57-year-old female returns for follow-up of her psoriasis and psoriatic arthritis. She report the joints are doing well with 100 mg Tremfya injections given every 8 weeks, but she feels little bit achy today because she is due for her injection. She still has a patch of psoriasis behind the left ear but otherwise no other area of psoriasis. She had used some triamcinolone 0.1% cream on that in the past but she ran out of it. She gets some lower back pain towards the end of the interval between the Tremfya injections. Sometimes this is associated with doing extra heavy physical labor. She does take some tramadol for that pain on a controlled substance contract and seems to be responsible in its use. It has not caused her any sedation. 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 She is hepatitis B core antibody positive but surface antibody negative but she has self stopped taking tenofovir. She continues to complain of fatigue such that when she gets home she has no energy to do other things in she just months to sleep. She denies depression, cardiovascular or respiratory concerns. She denies sleep apnea. Prior visit 11/20/2022: Dr. Medrano The patient returns for evaluation of her psoriasis and psoriatic arthritis. She was last seen by Susanna in April. Shee says the joints are doing well with 100 mg Tremfya injections given every 8 weeks. She still has a patch of psoriasis behind the left ear but otherwise no other area of psoriasis. She had used some triamcinolone 0.1% cream on that in the past but she ran out of it. She gets some lower back pain towards the end of the interval between the Tremfya injections. Sometimes this is associated with doing extra heavy physical labor. She does take some tramadol for that pain on a controlled substance contract and seems to be responsible in its use. It has not caused her any sedation. 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 She is hepatitis B core antibody positive but surface antibody negative so she remains on tenofovir. She underwent a laparoscopic cholecystectomy earlier this year with no complications. [facility] Medical History (Updated 05/19/23 @ 09:51 by RENE Guerrero) Hepatitis B Surgical History Hx laparoscopic cholecystectomy Social History (Updated 05/19/23 @ 08:41 by SARAI Muniz) Household Members: Children Housing: House Alcohol intake: current Alcohol intake frequency: a few times a week Patient Tobacco Use Status: Current everyday Tobacco user Cigarettes Per Day: 4 Years Smoked: 35 Physical Exam Vital Signs: Last Vital Signs Temp 97.0 F 05/19/23 08:40 Pulse 81 05/19/23 08:40 BP 116/80 05/19/23 08:40 Pulse Ox 99 05/19/23 08:40 Oxygen Delivery Method Room Air 05/19/23 08:40 BMI result Body Mass Index 41.8 Results Reviewed Results Reviewed: Laboratory Tests 03/31/22 16:38 Creatinine 0.98 AST 15 ALT 26 Alkaline Phosphatase 92 C-Reactive Protein 0.78 H Laboratory Tests 01/07/21 03/31/22 03/31/22 16:15 16:38 16:38 WBC 11.3 H Hgb 14.2 ESR 12 Hep B Core Total Ab Reactive Hep B DNA copies/mL <1.00 NOT DETECTED Laboratory Tests 11/20/22 08:40 WBC 8.4 RBC 5.49 Hgb 14.4 Hct 45.7 ESR 7 Creatinine 0.84 Iron 114 TIBC 403 % Saturation 28 Unsat Iron Binding 289 AST 17 ALT 28 Alkaline Phosphatase 90 C-Reactive Protein 0.40 Assessment & Plan Assessment & Plan (1) Psoriasis: Code(s): L40.9 - Psoriasis, unspecified (2) Medication monitoring encounter: Comment: Tramadol pain contract updated 12/24/2021 Code(s): Z51.81 - Encounter for therapeutic drug level monitoring (3) Hepatitis B: Comment: She is still taking biologic,different one (Tremfya). She has no concerns and has undetectable viral load; positive hepatitis-B core antibody but negative surface antibody on tenofovir Code(s): B19.10 - Unspecified viral hepatitis B without hepatic coma Qualifiers: Viral hepatitis chronicity: carrier Qualified Code(s): B18.1 - Chronic viral hepatitis B without delta-agent (4) Fatigue: Code(s): R53.83 - Other fatigue Qualifiers: Fatigue type: chronic, unspecified Qualified Code(s): R53.82 - Chronic fatigue, unspecified (5) Psoriatic arthritis: Comment: Humira: May 2017- August 2018 Stelara: March 2018-March 2021-had breakthrough joint pain Cosentyx: March 2021- September 2021-ineffective Tremfya: September 2021- present Code(s): L40.50 - Arthropathic psoriasis, unspecified Plan #Psoriatic arthritis with good control of synovitis with current treatment Tremfya 100 mg Q 8 weeks. There is still a resistant patch of psoriasis behind the left ear. She continues to use the l triamcinolone cream and sometimes Vaseline to the side. She has been on a number of different regimens for her psoriatic disease and this is the best she has been. SUZANNA inhibitors would potentially increase her risk for heart disease and she is a smoker. #Chronic fatigue. It is unclear what this is due to. Her iron and thyroid levels appeared adequate when checked October 2022. CBC and Chem panel as well as acute phase reactants are good to continue Tremfya and will be repeatedly ordered q.6 months to monitor her psoriatic disease and its treatment. #She has not been taking her medication for hepatitis-B but she has been asymptomatic and today it has not developed active disease being on immunosuppressive therapy. Patient was reminded of the risk of not taking her viral suppressant and also educated on the risk of developing active disease. F/U 6 months I spent 35 minutes reviewing history, evaluating patient and documenting. Orders: Orders Erythrocyte Sedimentation Rate Today L40.50 - Arthropathic psoriasis, unspecified, L40.9 - Psoriasis, unspecified Comprehensive Met. Panel Today L40.50 - Arthropathic psoriasis, unspecified, L40.9 - Psoriasis, unspecified Vitamin B12 Today L40.50 - Arthropathic psoriasis, unspecified, L40.9 - Psoriasis, unspecified Vitamin D 1,25 dihydroxy Today L40.50 - Arthropathic psoriasis, unspecified, L40.9 - Psoriasis, unspecified C Reactive Protein 6 Months L40.50 - Arthropathic psoriasis, unspecified, L40.9 - Psoriasis, unspecified Aspartate Amino Transferase 6 Months L40.50 - Arthropathic psoriasis, unspecified, L40.9 - Psoriasis, unspecified, Z79.899 - Other group home (current) drug therapy C Reactive Protein Today L40.50 - Arthropathic psoriasis, unspecified, L40.9 - Psoriasis, unspecified Complete Blood Count Auto Diff Today L40.50 - Arthropathic psoriasis, unspecified, L40.9 - Psoriasis, unspecified Erythrocyte Sedimentation Rate 6 Months L40.50 - Arthropathic psoriasis, unspecified, L40.9 - Psoriasis, unspecified Alanine Aminotransferase 6 Months L40.50 - Arthropathic psoriasis, unspecified, L40.9 - Psoriasis, unspecified, Z79.899 - Other exterminator termite (current) drug therapy Complete Blood Count Auto Diff 6 Months L40.50 - Arthropathic psoriasis, unspecified, L40.9 - Psoriasis, unspecified, Z79.899 - Other exterminator termite (current) drug therapy Creatinine 6 Months L40.50 - Arthropathic psoriasis, unspecified, L40.9 - Psoriasis, unspecified, Z79.899 - Other exterminator termite (current) drug therapy Coding Level of Care Code Est Pt Level 3 (80185) Diagnoses Psoriasis L40.9 Medication monitoring encounter Z51.81 Hepatitis B carrier B18.1 Viral hepatitis chronicity: carrier Chronic fatigue R53.82 Fatigue type: chronic, unspecified Psoriatic arthritis L40.50
[2023-05-19 08:40] VITALS: BP 116/80; PULSE 81; TEMP 36.1; O2SAT 99; BMI 41.8
== END 2023-05-19 09:01 | disposition home or self-care (01) ==
PROVIDERS: PCP Internal Medicine; Visit Provider Nurse Practitioner Family
DX: L40.9 Psoriasis, unspecified (principal); Z51.81 Encounter for therapeutic drug level monitoring; B18.1 Chronic viral hepatitis B without delta-agent; R53.82 Chronic fatigue, unspecified; L40.50 Arthropathic psoriasis, unspecified
CPT/HCPCS: 99213

== ENCOUNTER → 2023-05-19 08:29 | Outpatient (BNVA) | payer OTHER, SELFPAY | PROVIDERS: PCP Internal Medicine; Visit Provider Nurse Practitioner Family ==

== ENCOUNTER 2023-05-19 09:10 | Outpatient (REF) | payer OTHER, SELFPAY ==
[2023-05-19 10:47] LABS: MANUAL DIFF FLAG NO
[2023-05-19 10:59] LABS: Basophils Absolute Auto 0.1 X10*3/uL (0.0-0.2); Basophils Percent Auto 0.7 % (0-2); Eosinophils Absolute Auto 0.1 X10*3/uL (0.0-0.4); Eosinophils Percent Auto 1.7 % (0-4); Hematocrit 44.8 % (37.0-47.0); Hemoglobin 14.2 g/dl (12.0-16.0); Imm Gran Abs Auto 0.01 X10*3/uL (0.00-0.03); Imm Gran Pct Auto 0.1 % (0.0-0.4); Lymphocytes Percent Auto 23.9 % (20-40); Mean Corpuscular HGB Conc 31.7 g/dl (31.0-35.0); Mean Corpuscular Hemoglobin 26.4 pg (27.0-33.0); Mean Corpuscular Volume 83.3 fL (80.0-98.0); Mean Platelet Volume 10.8 fL (9.4-12.3); Monocytes Absolute Auto 0.6 X10*3/uL (0.1-1.2); Monocytes Percent Auto 6.5 % (2-11); Neutrophils Absolute Auto 5.6 x10*3/uL (2.0-8.3); Neutrophils Percent Auto 67.1 % (45-73); Platelet Count 302 X10*3/uL (160-400); Red Blood Count 5.38 X10*6/uL (4.20-5.50); Red Cell Distribution Width 15.1 % (11.0-16.0); White Blood Count 8.4 X10*3/uL (4.8-10.8)
[2023-05-19 11:14] LABS: Alanine Aminotransferase 23 U/L (0-31); Alkaline Phosphatase 87 U/L (39-117); Anion Gap 10 (12-20); Aspartate Amino Transferase 15 U/L (5-31); Bilirubin Direct 0.2 mg/dL (0.0-0.5); Bilirubin Total 0.5 mg/dL (0.0-1.0); Blood Urea Nitrogen 17 mg/dL (9-16); C Reactive Protein 0.77 mg/dL (< or = 0.50); Calcium 9.2 mg/dL (8.4-10.2); Carbon Dioxide 26 mmol/L (22-29); Chloride 109 mmol/L (96-108); Estimated Glomerular Filt Rate > 60; Glucose Random 105 mg/dL (60-115); Potassium 4.4 mmol/L (3.3-5.1); Sodium 141 mmol/L (135-145); Total Protein 7.3 g/dL (6.5-8.0)
[2023-05-19 11:37] LABS: Erythrocyte Sedimentation Rate 12 MM/HR (0-20)
[2023-05-19 11:59] LABS: Vitamin B12 448 pg/mL (200-900)
[2023-05-20 08:03] LABS: ~Hepatitis C Antibody Nonreactive (Nonreactive)
[2023-05-22 15:37] LABS: Hepatitis B Viral DNA Qn - cp NOT DETECTED Log IU/mL (NOT DETECTED); Hepatitis B Viral DNA Qn-IU/mL NOT DETECTED (NOT DETECTED)
[2023-05-23 16:44] LABS: VITAMIN D (1,25 OH) D3 35 pg/mL; Vit D (1,25-Dihydroxy) Total 35 pg/mL (18-72); Vitamin D (1,25 OH) D2 <8 pg/mL
[2023-05-23 17:33] LABS: Hepatitis Delta Antibody NEGATIVE
[2023-05-27 18:14] LABS: FIB-ALT 20 U/L (6-29); FIB-Alpha-2-Macroglobulin 114 mg/dL (106-279); FIB-Apolipoprotein A1 196 mg/dL (101-198); FIB-GGT 51 U/L (3-70); FIB-Haptoglobin 81 mg/dL (43-212); FIB-Total Bilirubin 0.5 mg/dL (0.2-1.2); Liver Fibrosis Score 0.08; Liver Fibrosis Stage F0; Nec Inflam Act Grade A0; Nec Inflam Act Score 0.06
== END 2023-05-19 09:11 | disposition home or self-care (01) ==
LOC: HO.10HDL 09:10
PROVIDERS: Internal Medicine; Visit Provider Nurse Practitioner Family
DX: L40.50 Arthropathic psoriasis, unspecified (principal); B19.10 Unspecified viral hepatitis B without hepatic coma
CPT/HCPCS: 36415; 80053; 81596; 82248; 82607; 82652; 85025; 85610; 85652; 86140; 86692; 86803; 87517

== ENCOUNTER 2024-01-05 07:37 | Outpatient (AMB) | payer OTHER, SELFPAY ==
--- NOTE | 2024-01-05 07:38 | MHC.OFFVIS ---
Vital Signs 01/05/24 07:42 Height 5 ft 8 in Weight 272 lb 0.807 oz BMI 41.4 BP 130/62 Blood Pressure Location Lt brachial Position Sitting Pulse 83 Pulse Source Pulse Oximeter Pulse Oximetry (%) 98 Oxygen Delivery Method Room Air Intake Visit Reasons: PSA/cm Intake Note: Patient presents for PsA. Allergies penicillin V Allergy (Intermediate, Verified 01/05/24 07:41) rash Medication List - Last Reconciled 01/05/24 by Padmini Sharma MD amlodipine 5 mg PO BEDTIME atorvastatin 1 tab every other day orally bedtime; guselkumab (Tremfya) 100 mg subcut Q8W losartan 50 mg PO BID tramadol 50 mg PO Q12H PRN triamcinolone acetonide 0.1% 1 appl topical DAILY HPI Comments Details: Patient is a 58-year-old female with hypertension, hyperlipidemia, psoriasis and psoriatic arthritis who presents today for follow-up. Interval History: Patient last seen 05/2023 with Petyon Mcclellan. At that time patient was overall doing well however had breakthrough pain towards the end of her Tremfya cycle. She manage that pain with tramadol. Very active. Today she reports the same. Rheumatologic History: Patient initially diagnosed with psoriasis subsequently developed psoriatic arthritis. Humira: May 2017- August 2018 Stelara: March 2018-March 2021-had breakthrough joint pain Cosentyx: March 2021- September 2021-ineffective Tremfya: September 2021- present Current Rheumatology Medication(s): Tremfya 100 mg subcutaneous every 8 weeks IV PFSH Medical History (Updated 01/05/24 @ 08:09 by Padmini Sharma MD) Hepatitis B Surgical History Hx laparoscopic cholecystectomy Social History Household Members: Children Housing: House Alcohol intake: current Alcohol intake frequency: a few times a week Patient Tobacco Use Status: Current everyday Tobacco user Cigarettes Per Day: 4 Years Smoked: 35 Review of Systems Const Details: Review of Systems Constitutional: Denies fever, chills, weight loss ENT: Denies vision changes, eye pain or eye redness, dental caries, dry mouth GI: Denies nausea, vomiting, diarrhea, abdominal pain, change in BM Pulm: Denies SOB, KLEIN, hemoptysis, wheezing Cards: Denies chest pain, palpitations Skin: Denies Raynaud's, rash, nail changes, photosensitivity, MEDICAL TRANSCRIPTION: Denies headaches, weakness, paresthesias, recurrent falls MSK: as per HPI All other systems reviewed and are unremarkable except noted above Physical Exam Vital Signs: Last Vital Signs Pulse 83 01/05/24 07:42 BP 130/62 01/05/24 07:42 Pulse Ox 98 01/05/24 07:42 Oxygen Delivery Method Room Air 01/05/24 07:42 BMI result Body Mass Index 41.4 Physical Examination CONSTITUITIONAL Patient alert and cooperative. Well appearing and in no apparent painful distress HEENT Conjunctiva and sclera clear. ?Pupils equal round and reactive to light. ?No lymphadenopathy. ?Normal dentition. No oral or nasal ulcers noted. No evidence of discoid rash to the betsy of ears CHEST/RESPIRATORY SYSTEM Normal respiratory effort and able to speak in complete sentences. ?Clear to auscultation bilaterally. ?No crackles, rales, rhonchi, wheezes heard. CARDIAC SYSTEM Regular rate and rhythm. ?S1 and S2 heard no murmurs. 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 ?No deformities noted. ?No synovitis noted to the MCPs, PIPs or DIPs. ?No tenderness to palpation of these joints. Wrists: ?Full range of motion at the wrists without pain. ?No tenderness to palpation or synovitis noted to the wrists. Elbows: Full range of motion without pain. No tenderness, weakness, swelling, increased warmth or erythema. Shoulders: Full range of motion without pain. No tenderness, weakness, swelling, increased warmth or erythema. Hips: Full range of motion without pain. Hip bursa: No tenderness to palpation Knees: ?Full range of motion. ?No tenderness, swelling, increased warmth or erythema.?No effusion or crepitations Ankles: Full range of motion. ?No tenderness, swelling, increased warmth or erythema.? Feet: ?Negative squeeze test. ?No tenderness to palpation or swelling of the MTPs. Tender points:??No tenderness to palpation of the neck, shoulders, chest, elbows, hips, buttocks or knees. SKIN Skin intact without rashes. Onycholysis noted to the thumb of right hand Results Reviewed Results Reviewed: Laboratory Tests 11/20/22 05/19/23 08:40 09:15 WBC 8.4 8.4 RBC 5.49 5.38 Hgb 14.4 14.2 Hct 45.7 44.8 Plt Count 325 302 ESR 7 12 Sodium 142 141 Potassium 4.0 4.4 Chloride 109 H 109 H Carbon Dioxide 26 26 BUN 12 17 H Creatinine 0.84 0.78 AST 17 15 ALT 28 23 Alkaline Phosphatase 90 87 C-Reactive Protein 0.40 0.77 H Assessment & Plan Assessment & Plan (1) Psoriatic arthritis: Comment: Humira: May 2017- August 2018 Stelara: March 2018-March 2021-had breakthrough joint pain Cosentyx: March 2021- September 2021-ineffective Tremfya: September 2021- present Code(s): L40.50 - Arthropathic psoriasis, unspecified Category: Medical Plan: #Psoriatic Arthritis Patient with psoriasis and psoriatic arthritis. Her psoriasis is currently under control although she sometimes has to use topical triamcinolone. Respect to her psoriatic arthritis she is doing well on the Tremfya however still reports breakthrough joint pain towards the end of her Tremfya cycle which requires her to take tramadol. I discussed with her about adding methotrexate to her regimen and she is amenable. We will place patient on methotrexate 15 mg every week as well as folic acid 1 mg daily. (2) Hepatitis B: Comment: She is still taking biologic,different one (Tremfya). She has no concerns and has undetectable viral load; positive hepatitis-B core antibody but negative surface antibody on tenofovir Patient self discontinued Tenofovir. 2022 Code(s): B19.10 - Unspecified viral hepatitis B without hepatic coma Category: Medical Qualifiers: Viral hepatitis chronicity: carrier Qualified Code(s): B18.1 - Chronic viral hepatitis B without delta-agent Plan: #Hep B Core Ab positive Patient no longer on Tenofovir. Discussed with patient the risks and benefits of taking Tenofovir while on Tremfya She would prefer to monitor at this time She has no known history of Hep B infection (3) Methotrexate, intermediate frame tender, current use: Code(s): Z79.631 - exterminator termite (current) use of antimetabolite agent Category: Medical Plan: #Long-term Current Use of Methotrexate Discussed with patient the benefits and risks of methotrexate for managing their rheumatic condition Benefits include reduced pain, reduced mortality, maintenance of remission and reduction of flares Risks include oral ulcers, photosensitivity, hepatotoxicity, hematologic toxicity, pneumonitis, flu-like symptoms (especially day after administration), nodulosis, lymphomas ? Limit alcohol and avoid Bactrim ? Monitoring: ?CBC, BMP, LFTs every 3-4 months, hepatitis serologies as needed (4) exterminator termite (current) use of immunosuppressive biologic: Code(s): Z79.620 - exterminator termite (current) use of immunosuppressive biologic Category: Medical Plan: #Long-term current use of IL23 inhibitor Discussed with patient the benefits and risks of Tremfya for managing their rheumatic condition Benefits include reduced pain, reduced mortality, maintenance of remission and reduction of flares Risks include injection site reactions, increased risk of infections Plan I spent 40 minutes reviewing the record and labs, seeing the patient, discussing the treatment plan and documenting in the medical record ? Orders: Orders IRON PROFILE Today E61.1 - Iron deficiency, L40.50 - Arthropathic psoriasis, unspecified Hepatitis B Surface Antigen Today L40.50 - Arthropathic psoriasis, unspecified Hepatitis A,B,C Profile Today L40.50 - Arthropathic psoriasis, unspecified Hepatitis C Viral Load Today L40.50 - Arthropathic psoriasis, unspecified C Reactive Protein Today L40.50 - Arthropathic psoriasis, unspecified Erythrocyte Sedimentation Rate Today L40.50 - Arthropathic psoriasis, unspecified Hepatitis B Viral DNA Qn Today L40.50 - Arthropathic psoriasis, unspecified Comprehensive Met. Panel Today L40.50 - Arthropathic psoriasis, unspecified Complete Blood Count Auto Diff Today L40.50 - Arthropathic psoriasis, unspecified Medications: New methotrexate sodium 15 mg (6 x 2.5 mg) PO QWEEK 90 days 78 tabs 1RF L40.50 - Arthropathic psoriasis, unspecified folic acid 1 mg PO DAILY 90 days 90 tabs 2RF L40.50 - Arthropathic psoriasis, unspecified Coding Level of Care Code Est Pt Level 5 (47645) Complex EM visit Add On G2211 Diagnoses Psoriatic arthritis L40.50 Hepatitis B carrier B18.1 Viral hepatitis chronicity: carrier Methotrexate, intermediate frame tender, current use Z79.631 exterminator termite (current) use of immunosuppressive biologic Z79.620
[2024-01-05 07:42] VITALS: BP 130/62; PULSE 83; O2SAT 98; BMI 41.4
== END 2024-01-05 08:05 | disposition home or self-care (01) ==
LOC: HO.RHE 07:37
PROVIDERS: PCP Internal Medicine; Visit Provider Student in an Organized Health Care Education/Training Program
DX: L40.50 Arthropathic psoriasis, unspecified (principal); B18.1 Chronic viral hepatitis B without delta-agent; Z79.631 Long term (current) use of antimetabolite agent; Z79.620 Long term (current) use of immunosuppressive biologic
CPT/HCPCS: 99215

== ENCOUNTER → 2024-01-05 07:37 | Outpatient (BNVA) | payer OTHER, SELFPAY | PROVIDERS: PCP Internal Medicine; Visit Provider Student in an Organized Health Care Education/Training Program ==

== ENCOUNTER 2024-04-26 15:46 | Outpatient (REF) | payer OTHER, SELFPAY ==
[2024-04-26 16:04] LABS: MANUAL DIFF FLAG NO
[2024-04-26 16:19] LABS: Basophils Absolute Auto 0.1 X10*3/uL (0.0-0.2); Basophils Percent Auto 0.7 % (0-2); Eosinophils Absolute Auto 0.1 X10*3/uL (0.0-0.4); Eosinophils Percent Auto 1.5 % (0-4); Hematocrit 44.5 % (37.0-47.0); Hemoglobin 14.1 g/dl (12.0-16.0); Imm Gran Abs Auto 0.03 X10*3/uL (0.00-0.03); Imm Gran Pct Auto 0.3 % (0.0-0.4); Lymphocytes Absolute Auto 2.9 X10*3/uL (1.2-4.9); Lymphocytes Percent Auto 31.3 % (20-40); Mean Corpuscular HGB Conc 31.7 g/dl (31.0-35.0); Mean Corpuscular Hemoglobin 26.2 pg (27.0-33.0); Mean Corpuscular Volume 82.6 fL (80.0-98.0); Mean Platelet Volume 10.6 fL (9.4-12.3); Monocytes Absolute Auto 0.8 X10*3/uL (0.1-1.2); Monocytes Percent Auto 8.4 % (2-11); Neutrophils Absolute Auto 5.3 x10*3/uL (2.0-8.3); Neutrophils Percent Auto 57.8 % (45-73); Platelet Count 306 X10*3/uL (160-400); Red Blood Count 5.39 X10*6/uL (4.20-5.50); Red Cell Distribution Width 15.1 % (11.0-16.0); White Blood Count 9.1 X10*3/uL (4.8-10.8)
[2024-04-26 17:19] LABS: Alanine Aminotransferase 30 U/L (0-31); Alkaline Phosphatase 89 U/L (39-117); Anion Gap 9 (12-20); Aspartate Amino Transferase 22 U/L (5-31); Bilirubin Total 0.4 mg/dL (0.0-1.0); Blood Urea Nitrogen 13 mg/dL (9-16); C Reactive Protein 0.86 mg/dL (< or = 0.50); Calcium 9.1 mg/dL (8.4-10.2); Carbon Dioxide 26 mmol/L (22-29); Chloride 110 mmol/L (96-108); Estimated Glomerular Filt Rate > 60; Glucose Random 92 mg/dL (60-115); Iron 75 mcg/dL (30-160); Percent Iron Saturation 21 % (15-50); Potassium 4.2 mmol/L (3.3-5.1); Sodium 141 mmol/L (135-145); Total Iron Binding Capacity 360 mcg/dL (228-428); Total Protein 7.6 g/dL (6.5-8.0); Unsaturated Iron Binding 285 ug/dL
[2024-04-26 19:39] LABS: Erythrocyte Sedimentation Rate 6 MM/HR (0-20)
[2024-04-27 08:59] LABS: HBS Num1 123.84 mIU/mL (0-7.99); HBc Num1 6.63 S/CO (0.00-0.79); HBsAGNum1 0.43 S/CO (0.00-0.99); Hepatitis A Antibody IgM 0.19 Index (0-0.79); Hepatitis B Surface Antigen Negative (Negative); ~HepC Num1 0.13 S/CO (0.00-0.79); ~Hepatitis A Antibody IgM Nonreactive (Nonreactive); ~Hepatitis B Surface Antibody REACTIVE (Nonreactive); ~Hepatitis C Antibody Nonreactive (Nonreactive)
[2024-04-27 10:33] LABS: HBc Num2 6.42 S/CO; HBc Num3 6.64 S/CO; Hepatitis B Core Antibody Reactive (Nonreactive)
[2024-04-27 13:13] LABS: HCV Log PCR <1.18 NOT DETECTED Log IU/mL (NOT DETECTED); HepC Viral Load <15 NOT DETECTED IU/mL (NOT DETECTED)
[2024-04-27 13:47] LABS: Hepatitis B Viral DNA Qn - cp NOT DETECTED Log IU/mL (NOT DETECTED); Hepatitis B Viral DNA Qn-IU/mL NOT DETECTED (NOT DETECTED)
== END 2024-04-26 15:47 | disposition home or self-care (01) ==
LOC: HO.LAB 15:46
PROVIDERS: PCP Internal Medicine; Visit Provider Student in an Organized Health Care Education/Training Program
DX: L40.50 Arthropathic psoriasis, unspecified (principal); E61.1 Iron deficiency
CPT/HCPCS: 36415; 80053; 83540; 85025; 85652; 86140; 86704; 86706; 86709; 86803; 87340; 87517; 87522

== ENCOUNTER 2024-05-03 07:38 | Outpatient (AMB) | payer OTHER, SELFPAY ==
--- NOTE | 2024-05-03 07:52 | MHC.OFFVIS ---
Vital Signs 05/03/24 07:57 Height 5 ft 8 in Weight 272 lb 0.807 oz BMI 41.4 BP 180/120 H Blood Pressure Location Lt brachial Position Sitting Pulse 60 Pulse Source Pulse Oximeter Pulse Oximetry (%) 98 Oxygen Delivery Method Room Air Intake Visit Reasons: PSA Intake Note: Patient presents for PsA. Allergies penicillin V Allergy (Intermediate, Verified 05/03/24 07:56) rash HPI Comments Details: Patient is a 58-year-old female with hypertension, hyperlipidemia, psoriasis and psoriatic arthritis who presents today for follow-up. Interval History: Patient last seen 01/2024 with me. At that time patient was overall well but noted to some breakthrough joint pain with the Tremfya. We discussed starting methotrexate to see if that would help with her additional breakthrough joint pain. Patient states she feels the methotrexate but after thinking about it she decided to not start it. Overall patient remains well has been trying to stretch and exercise more as well as adding anti-inflammatory options to her diet such as turmeric Rheumatologic History: Patient initially diagnosed with psoriasis subsequently developed psoriatic arthritis. Humira: May 2017- August 2018 Stelara: March 2018-March 2021-had breakthrough joint pain Cosentyx: March 2021- September 2021-ineffective Tremfya: September 2021- present Current Rheumatology Medication(s): Tremfya 100 mg subcutaneous every 8 weeks IV Methotrexate 15mg weekly (did not start) Folic acid 1mg daily (did not start) [facility] Medical History (Updated 05/03/24 @ 08:09 by Padmini Sharma MD) Hepatitis B Surgical History Hx laparoscopic cholecystectomy Social History Household Members: Children Housing: House Alcohol intake: current Alcohol intake frequency: a few times a week Patient Tobacco Use Status: Current everyday Tobacco user Cigarettes Per Day: 4 Years Smoked: 35 Review of Systems Const Details: Review of Systems Constitutional: Denies fever, chills, weight loss ENT: Denies vision changes, eye pain or eye redness, dental caries, dry mouth GI: Denies nausea, vomiting, diarrhea, abdominal pain, change in BM Pulm: Denies SOB, KLEIN, hemoptysis, wheezing Cards: Denies chest pain, palpitations Skin: Denies Raynaud's, rash, nail changes, photosensitivity, 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 Well appearing and in no apparent painful distress HEENT Conjunctiva and sclera clear. ?Pupils equal round and reactive to light. ?No lymphadenopathy. ?Normal dentition. No oral or nasal ulcers noted. No evidence of discoid rash to the betsy of ears CHEST/RESPIRATORY SYSTEM Normal respiratory effort and able to speak in complete sentences. ?Clear to auscultation bilaterally. ?No crackles, rales, rhonchi, wheezes heard. CARDIAC SYSTEM Regular rate and rhythm. ?S1 and S2 heard no murmurs. 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 ?No deformities noted. ?No synovitis noted to the MCPs, PIPs or DIPs. ?No tenderness to palpation of these joints. Wrists: ?Full range of motion at the wrists without pain. ?No tenderness to palpation or synovitis noted to the wrists. Elbows: Full range of motion without pain. No tenderness, weakness, swelling, increased warmth or erythema. Shoulders: Full range of motion without pain. No tenderness, weakness, swelling, increased warmth or erythema. Hips: Full range of motion without pain. Hip bursa: No tenderness to palpation Knees: ?Full range of motion. ?No tenderness, swelling, increased warmth or erythema.?No effusion or crepitations Ankles: Full range of motion. ?No tenderness, swelling, increased warmth or erythema.? Feet: ?Negative squeeze test. ?No tenderness to palpation or swelling of the MTPs. Tender points:??No tenderness to palpation of the neck, shoulders, chest, elbows, hips, buttocks or knees. SKIN Skin intact without rashes. Onycholysis noted to the thumb of right hand Results Reviewed Results Reviewed: Laboratory Tests 04/26/24 16:03 WBC 9.1 RBC 5.39 Hgb 14.1 Hct 44.5 ESR 6 Sodium 141 Potassium 4.2 Chloride 110 H Carbon Dioxide 26 BUN 13 Creatinine 0.76 AST 22 ALT 30 Alkaline Phosphatase 89 C-Reactive Protein 0.86 H Total Protein 7.6 Albumin 4.0 Hepatitis A IgM Ab Nonreactive Hep Bs Antigen Negative Hep Bs Antibody REACTIVE Hep B Core Total Ab Reactive Hep B DNA copies/mL NOT DETECTED Hep B DNA (IU/mL) NOT DETECTED Hepatitis C Ab (EIA) Nonreactive Hep C Viral Load <15 NOT DETECTED Hep C Viral Load Log <1.18 NOT DETECTED Assessment & Plan Assessment & Plan (1) Psoriatic arthritis: Comment: Humira: May 2017- August 2018 Stelara: March 2018-March 2021-had breakthrough joint pain Cosentyx: March 2021- September 2021-ineffective Tremfya: September 2021- present Code(s): L40.50 - Arthropathic psoriasis, unspecified Category: Medical Plan: #Psoriatic Arthritis Patient with psoriasis and psoriatic arthritis. Her psoriasis is currently under control although she sometimes has to use topical triamcinolone. Respect to her psoriatic arthritis she is doing well on the Tremfya however still reports breakthrough joint pain towards the end of her Tremfya cycle which requires her to take tramadol. Patient decided not to start the methotrexate is okay with continuing with lifestyle modifications such as light exercise and stretching as well as dietary changes. Plan - Tremfiya 100mg every 8 weeks - Stop methotrexate - Stop folic acid - Tramadol 50mg q12 hr prn - RTC 6 months - Labs before visit: CBC, CMP, ESR, CRP, hepatitis panel, T spot (2) Hepatitis B: Comment: She is still taking biologic,different one (Tremfya). She has no concerns and has undetectable viral load; positive hepatitis-B core antibody but negative surface antibody on tenofovir Patient self discontinued Tenofovir. 2022 Code(s): B19.10 - Unspecified viral hepatitis B without hepatic coma Category: Medical Qualifiers: Viral hepatitis chronicity: carrier Qualified Code(s): B18.1 - Chronic viral hepatitis B without delta-agent Plan: #Hep B Core Ab positive Patient no longer on Tenofovir. Discussed with patient the risks and benefits of taking Tenofovir while on Tremfya She would prefer to monitor at this time She has no known history of Hep B infection (3) MCFP (current) use of immunosuppressive biologic: Code(s): Z79.620 - [facility] (current) use of immunosuppressive biologic Category: Medical Plan: #Long-term current use of IL23 inhibitor Discussed with patient the benefits and risks of Tremfya for managing their rheumatic condition Benefits include reduced pain, reduced mortality, maintenance of remission and reduction of flares Risks include injection site reactions, increased risk of infections Plan I spent 20 minutes reviewing the record and labs, seeing the patient, discussing the treatment plan and documenting in the medical record ? Orders: Orders Complete Blood Count Auto Diff 6 Months L40.50 - Arthropathic psoriasis, unspecified, Z79.620 - [facility] (current) use of immunosuppressive biologic Comprehensive Met. 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 of immunosuppressive biologic C Reactive Protein 6 Months L40.50 - Arthropathic psoriasis, unspecified, Z79.620 - [facility] (current) use of immunosuppressive biologic Hepatitis A,B,C Profile 6 Months L40.50 - Arthropathic psoriasis, unspecified, Z79.620 - engraving patternmaker (current) use of immunosuppressive biologic Hepatitis B Viral DNA Qn 6 Months L40.50 - Arthropathic psoriasis, unspecified, Z79.620 - [facility] (current) use of immunosuppressive biologic T Spot TB 6 Months L40.50 - Arthropathic psoriasis, unspecified, Z79.620 - [facility] (current) use of immunosuppressive biologic Erythrocyte Sedimentation Rate 6 Months L40.50 - Arthropathic psoriasis, unspecified, Z79.620 - engraving patternmaker (current) use of immunosuppressive biologic Hepatitis C Viral Load 6 Months L40.50 - Arthropathic psoriasis, unspecified, Z79.620 - engraving patternmaker (current) use of immunosuppressive biologic Medications: Refilled tramadol 50 mg PO Q12H PRN 60 tabs 5RF pain M19.90 - Unspecified osteoarthritis, unspecified site guselkumab (Tremfya) 100 mg subcut Q8W 1 mL 3RF L40.50 - Arthropathic psoriasis, unspecified, L40.9 - Psoriasis, unspecified Discontinued methotrexate sodium Discontinued Reason: Doctor's Order 15 mg (6 x 2.5 mg) PO QWEEK 90 days 78 tabs 1RF L40.50 - Arthropathic psoriasis, unspecified folic acid Discontinued Reason: Doctor's Order 1 mg PO DAILY 90 days 90 tabs 2RF L40.50 - Arthropathic psoriasis, unspecified Coding Level of Care Code Est Pt Level 3 (54966) Complex EM visit Add On G2211 Diagnoses Psoriatic arthritis L40.50 Hepatitis B carrier B18.1 Viral hepatitis chronicity: carrier engraving patternmaker (current) use of immunosuppressive biologic Z79.620
[2024-05-03 07:57] VITALS: BP 180/120; PULSE 60; O2SAT 98; BMI 41.4
== END 2024-05-03 08:02 | disposition home or self-care (01) ==
PROVIDERS: PCP Internal Medicine; Visit Provider Student in an Organized Health Care Education/Training Program
DX: L40.50 Arthropathic psoriasis, unspecified (principal); B18.1 Chronic viral hepatitis B without delta-agent; Z79.620 Long term (current) use of immunosuppressive biologic
CPT/HCPCS: 99213

== ENCOUNTER 2024-10-26 07:35 | Outpatient (REF) | payer OTHER, SELFPAY ==
[2024-10-26 08:15] LABS: MANUAL DIFF FLAG NO
[2024-10-26 08:38] LABS: Hematocrit 44.8 % (37.0-47.0); Hemoglobin 14.2 g/dl (12.0-16.0); Imm Gran Abs Auto 0.02 X10*3/uL (0.00-0.03); Imm Gran Pct Auto 0.3 % (0.0-0.4); Lymphocytes Absolute Auto 1.9 X10*3/uL (1.2-4.9); Mean Corpuscular HGB Conc 31.7 g/dl (31.0-35.0); Mean Corpuscular Hemoglobin 26.3 pg (27.0-33.0); Mean Corpuscular Volume 83.1 fL (80.0-98.0); NRBC Abs Auto 0.000 X10*3/uL (0.0-0.012); NRBC Pct Auto 0.0 /100WBC (0.0-0.2); Platelet Count 299 X10*3/uL (160-400); Red Blood Count 5.39 X10*6/uL (4.20-5.50); White Blood Count 7.8 X10*3/uL (4.8-10.8)
[2024-10-26 09:33] LABS: Alanine Aminotransferase 24 U/L (0-31); Albumin Level 4.1 g/dL (3.5-5.0); Alkaline Phosphatase 85 U/L (39-117); Anion Gap 10 (12-20); Aspartate Amino Transferase 19 U/L (5-31); Blood Urea Nitrogen 13 mg/dL (9-16); Calcium 9.2 mg/dL (8.4-10.2); Carbon Dioxide 25 mmol/L (22-29); Chloride 110 mmol/L (96-108); Estimated Glomerular Filt Rate > 60; Potassium 4.3 mmol/L (3.3-5.1); Sodium 141 mmol/L (135-145); Total Protein 7.2 g/dL (6.5-8.0)
[2024-10-26 10:01] LABS: HBS Num1 122.25 mIU/mL (0-7.99); HBc Num1 10.95 S/CO (0.00-0.79); HBsAGNum1 0.39 S/CO (0.00-0.99); Hepatitis A Antibody IgM 0.18 Index (0-0.79); ~HepC Num1 0.09 S/CO (0.00-0.79); ~Hepatitis A Antibody IgM Nonreactive (Nonreactive); ~Hepatitis B Surface Antibody REACTIVE (Nonreactive); ~Hepatitis C Antibody Nonreactive (Nonreactive)
[2024-10-26 10:02] LABS: Hepatitis B Surface Antigen Negative (Negative)
[2024-10-26 13:50] LABS: HBc Num2 11.52 S/CO; HBc Num3 10.72 S/CO
[2024-10-27 03:14] LABS: Hepatitis B Core Antibody IgM NON-REACTIVE (NON-REACTIVE)
[2024-10-27 15:49] LABS: Hepatitis B Viral DNA Qn - cp NOT DETECTED Log IU/mL (NOT DETECTED); Hepatitis B Viral DNA Qn-IU/mL NOT DETECTED (NOT DETECTED)
[2024-10-28 14:53] LABS: HCV Log PCR <1.18 NOT DETECTED Log IU/mL (NOT DETECTED); HepC Viral Load <15 NOT DETECTED IU/mL (NOT DETECTED)
[2024-10-28 22:28] LABS: TS Negative Control Passed; TS Panel A 3; TS Panel B 0; TS Positive Control Passed; TSpotTB Negative (Negative)
== END 2024-10-26 07:36 | disposition home or self-care (01) ==
LOC: HO.LAB 07:35
PROVIDERS: PCP Internal Medicine; Visit Provider Student in an Organized Health Care Education/Training Program
DX: L40.50 Arthropathic psoriasis, unspecified (principal); Z79.620 Long term (current) use of immunosuppressive biologic
CPT/HCPCS: 36415; 80053; 85025; 85652; 86140; 86481; 86704; 86705; 86706; 86709; 86803; 87340; 87517; 87522

== ENCOUNTER 2024-11-02 07:26 | Outpatient (AMB) | payer OTHER, SELFPAY ==
--- NOTE | 2024-11-02 07:30 | A.OFFVIS_ITS ---
Vital Signs 11/02/24 07:34 Height 5 ft 8 in Weight 271 lb 9.752 oz BMI 41.3 BP 152/100 H Blood Pressure Location Lt brachial Position Sitting Pulse 61 Pulse Source Pulse Oximeter Pulse Oximetry (%) 98 Oxygen Delivery Method Room Air Intake Visit Reasons: PSA Intake Note: Patient presents for PsA follow up and test results. Allergies penicillin V Allergy (Intermediate, Verified 11/02/24 07:33) rash HPI Comments Details: Patient is a 58-year-old female with hypertension, hyperlipidemia, psoriasis and psoriatic arthritis who presents today for follow-up. Interval History: Patient last seen 05/03/24 with me - On Tremfya 100mg SC every 8 weeks and tramadol 50mg q12hr prn - Did not start the methotrexate, was doing all over well and did not feel like she needed to start it - Doing well overall Today, - On Tremfya 100mg SC every 8 weeks and tramadol 50mg q12hr prn - Has been having issues getting her Tremfya from [facility] and so she is currently having a flare with worsening skin and nail symptoms and increased achyness in the joints Rheumatologic History: Patient initially diagnosed with psoriasis subsequently developed psoriatic arthritis. Humira: May 2017- August 2018 Stelara: March 2018-March 2021-had breakthrough joint pain Cosentyx: March 2021- September 2021-ineffective Tremfya: September 2021- present Current Rheumatology Medication(s): Tremfya 100 mg subcutaneous every 8 weeks Tramadol 50mg q12hr prn PFSH Medical History (Updated 11/02/24 @ 08:00 by Padmini Sharma MD) Hepatitis B Surgical History Hx laparoscopic cholecystectomy Social History Household Members: Children Housing: House Alcohol intake: current Alcohol intake frequency: a few times a week Patient Tobacco Use Status: Current everyday Tobacco user Cigarettes Per Day: 4 Years Smoked: 35 Review of Systems Const Details: Review of Systems Constitutional: Denies fever, chills, weight loss ENT: Denies vision changes, eye pain or eye redness, dental caries, dry mouth GI: Denies nausea, vomiting, diarrhea, abdominal pain, change in BM Pulm: Denies SOB, KLEIN, hemoptysis, wheezing Cards: Denies chest pain, palpitations Skin: Denies Raynaud's, photosensitivity, MEASURER: Denies headaches, weakness, paresthesias, recurrent falls MSK: as per HPI All other systems reviewed and are unremarkable except noted above Physical Exam Exam Exam: Vital signs reviewed Physical Examination CONSTITUITIONAL Patient alert and cooperative. Well appearing and in no apparent painful distress MSK Hands * Right Hand: Able to make a fist. No swelling or tenderness to palpation of the MCPs, PIPs or DIPs. Onycholysis noted to the thumb * Left Hand: Able to make a fist. No swelling or tenderness to palpation of the MCPs, PIPs or DIPs. Wrists * Right Wrist: Full ROM to flexion and extension. No swelling or TTP * Left Wrist: Full ROM to flexion and extension. No swelling or TTP Elbows * Right Elbow: Full ROM. No swelling or TTP. No TTP of the medial epicondyle. No TTP of the lateral epicondyle * Left Elbow: Full ROM. No swelling or TTP. No TTP of the medial epicondyle. No TTP of the lateral epicondyle Shoulders * Right shoulder: Decreased ROM. No swelling noted. No TTP of the AC joint. No TTP of the subacromial bursa. No TTP of the posterior shoulder * Left shoulder: Decreased ROM. No swelling noted. No TTP of the AC joint. No TTP of the subacromial bursa. No TTP of the posterior shoulder Knees * Right knee: Full ROM. No swelling noted. No TTP of the knee joint line. No TTP of pes anserine bursa * Left knee: Full ROM. No swelling noted. No TTP of the knee joint line. No TTP of pes anserine bursa. * Crepitations felt bilaterally Ankles * Right ankle: Good ankle dorsiflexion and plantar flexion. No swelling. No TTP of the ankle joint * Left ankle: Good ankle dorsiflexion and plantar flexion. No swelling. No TTP of the ankle joint Feet * Right foot: Negative squeeze test * Left foot: Negative squeeze test Tender points? * No tenderness to palpation of the bilateral trapezius, supraspinatus, anterior costochondral junctions, bilateral suboccipital muscle insertions SKIN PsO plaques noted to the scalp Vital Signs: Last Vital Signs Pulse 61 11/02/24 07:34 BP 152/100 H 11/02/24 07:34 Pulse Ox 98 11/02/24 07:34 Oxygen Delivery Method Room Air 11/02/24 07:34 BMI result Body Mass Index 41.3 Results Reviewed Results Reviewed: Laboratory Tests 04/26/24 10/26/24 16:03 08:14 WBC 7.8 RBC 5.39 Hgb 14.2 Hct 44.8 Plt Count 299 ESR 11 Sodium 141 Potassium 4.3 Chloride 110 H Carbon Dioxide 25 BUN 13 Creatinine 0.84 AST 19 ALT 24 Alkaline Phosphatase 85 C-Reactive Protein 0.86 H 0.84 H Infectious serologies 10/26/24 08:14 Hepatitis A IgM Ab Nonreactive Hep Bs Antigen Negative Hep Bs Antibody REACTIVE Hep B Core Total Ab Reactive Hep B Core IgM Ab NON-REACTIVE Hep B DNA copies/mL NOT DETECTED Hep B DNA (IU/mL) NOT DETECTED Hepatitis C Ab (EIA) Nonreactive Hep C Viral Load <15 NOT DETECTED Hep C Viral Load Log <1.18 NOT DETECTED TB Test (T-Spot) Com Negative Assessment & Plan Assessment & Plan (1) Psoriatic arthritis: Comment: Humira: May 2017- August 2018 Stelara: March 2018-March 2021-had breakthrough joint pain Cosentyx: March 2021- September 2021-ineffective Tremfya: September 2021- present. effective Code(s): L40.50 - Arthropathic psoriasis, unspecified Category: Medical Plan: #Psoriatic Arthritis Patient is a 58 y.o. female with psoriasis complicated by psoriatic arthritis. Her skin/scalp and nail PsO is currently flaring due to delay in receiving her Tremfya. She also notes increased achyness but no dactylitis/synovitis/enthesitis on exam. Has Tamadol at home for the worseing joint pain. Will reach out to [facility] to inquire about the issues with medication delivery. Plan - Tremfiya 100mg every 8 weeks - Tramadol 50mg q12 hr prn - RTC 6 months - Labs before visit: CBC, CMP, ESR, CRP (2) Hepatitis B: Comment: She is still taking biologic,different one (Tremfya). She has no concerns and has undetectable viral load; positive hepatitis-B core antibody but negative surface antibody on tenofovir Patient self discontinued Tenofovir. 2022 Code(s): B19.10 - Unspecified viral hepatitis B without hepatic coma Category: Medical Qualifiers: Viral hepatitis chronicity: carrier Qualified Code(s): B18.1 - Chronic viral hepatitis B without delta-agent Plan: #Hep B Core Ab positive Patient no longer on Tenofovir. Discussed with patient the risks and benefits of taking Tenofovir while on Tremfya She would prefer to monitor at this time She has no known history of Hep B infection Hepatitis B panel in nonreactive No viral load (3) custodial (current) use of immunosuppressive biologic: Code(s): Z79.620 - custodial (current) use of immunosuppressive biologic Category: Medical Plan: #Long-term current use of IL 23 inhibitor Discussed with patient the benefits and risks of Tremfya for managing their rheumatic condition Benefits include reduced pain, reduced mortality, maintenance of remission and reduction of flares Risks include injection site reactions, increased risk of infections Plan I spent 44 minutes reviewing the record and labs, taking a history, examining the patient, discussing the treatment plan, ordering diagnostic work up, inquiring from [facility] the issues with medication and documenting in the medical record ? 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
[2024-11-02 07:34] VITALS: BP 152/100; PULSE 61; O2SAT 98; BMI 41.3
== END 2024-11-02 07:51 | disposition home or self-care (01) ==
LOC: HO.RHES 07:26
PROVIDERS: PCP Internal Medicine; Visit Provider Student in an Organized Health Care Education/Training Program
DX: L40.50 Arthropathic psoriasis, unspecified (principal); B18.1 Chronic viral hepatitis B without delta-agent; Z79.620 Long term (current) use of immunosuppressive biologic
CPT/HCPCS: 99215